=== PATIENT | female | born 1995 | race Caucasian/White ===

== ENCOUNTER 2017-04-02 11:50 | Observation (INO) | payer BC, OTHER ==
[2017-04-02 11:56] VITALS: BMI 25.5
--- NOTE | 2017-04-02 13:29 | PDOC ---
History of Present Illness - General History Source: Patient, Parent(s) Exam Limitations: No Limitations - History of Present Illness Initial Comments: 04/02/17 14:36 21F with pmh of migraine, idiopathic intracranial hypertension presents with 5-7 /10 migraines with aura for the past 7 days. Patient was seen Patient had a similar episode last month that lasted 9 days, treated by Neurologist Dr Douglas for the past 1.5yr since diagnosed with ICH. Spinal tap on 01/31/16 had then revealed opening pressure of 36 cm h2O. Patient was subsequently put on acetazolamide but stopped (recently) due to GI symptoms but resumed a few days ago. 04/02/17 14:47 04/02/17 14:54 <Jeffrey Avalos - Last Filed: 04/02/17 18:16> <Elmira Oliva - Last Filed: 04/02/17 18:29> - General Chief Complaint: Migraine Headache Stated Complaint: PCP SENT (MIGRAINES) Time Seen by Provider: 04/02/17 13:02 Past History - Past Medical History Other medical history: Pseudo Tumor Cerebri - Psycho/Social/Smoking Cessation Hx Suicidal Ideation: No Smoking History: Never smoked Information on smoking cessation initiated: No Hx Alcohol Use: No Drug/Substance Use Hx: Yes (occasional marijuana) Substance Use Type: None <Jeffrey Aavlos - Last Filed: 04/02/17 18:16> <Elmira Oliva - Last Filed: 04/02/17 18:29> - Past Medical History Allergies/Adverse Reactions: Allergies Allergy/AdvReac Type Severity Reaction Status Date / Time No Known Allergies Allergy Verified 04/02/17 11:56 Home Medications: Ambulatory Orders Aspirin/Acetaminophen/Caffeine [Excedrin Migraine Caplet] 1 each PO AM 04/02/17 Sumatriptan Succinate [Imitrex -] 50 mg PO DAILY 04/02/17 Neuro Specific PMHX - Complaint Specific PMHX Migraine: Yes (9-day episode 1 month ago) Other Neuro History: Concussion 1 year ago, <Jeffrey Avalos - Last Filed: 04/02/17 18:16> *Physical Exam - Vital Signs Last Vital Signs Temp Pulse Resp BP Pulse Ox 98.7 F 75 18 109/70 100 04/02/17 11:52 04/02/17 11:52 04/02/17 11:52 04/02/17 11:52 04/02/17 11:52 <Jeffrey Avalos - Last Filed: 04/02/17 18:16> - Vital Signs Last Vital Signs Temp Pulse Resp BP Pulse Ox 98.7 F 78 18 137/88 98 04/02/17 11:52 04/02/17 15:52 04/02/17 11:52 04/02/17 15:52 04/02/17 15:52 <Elmira Oliva - Last Filed: 04/02/17 18:29> Procedures - Lumbar Puncture Indication: Pseudotumor Cerebri, Headache Betadine Prep: Yes Position: Left lateral decubitus Site: L4-L51 Local Anesthesia: 2% Lidocaine w/ epi Volume(ml): 20 Lumbar Puncture Kit: Adult Opening Pressure(mmHg): [id number] Traumatic Tap: No Clear Fluid: Yes Complications: No Progress: 04/02/17 18:15 Successful tap sent to lab <Jeffrey Avalos - Last Filed: 04/02/17 18:16> ED Treatment Course - LABORATORY CBC & Chemistry Diagram: 04/02/17 14:16 04/02/17 14:16 <Jeffrey Avalos - Last Filed: 04/02/17 18:16> - LABORATORY CBC & Chemistry Diagram: 04/02/17 14:16 04/02/17 14:16 - ADDITIONAL ORDERS Additional order review: Laboratory Results 04/02/17 04/02/17 04/02/17 17:20 17:08 14:16 Sodium 141 Potassium 4.3 Chloride 107 Carbon Dioxide 25 Anion Gap 9 BUN 14 Creatinine 0.7 Creat Clearance w eGFR > 60 Random Glucose 76 Calcium 8.9 Total Bilirubin 0.2 AST 18 ALT 28 Alkaline Phosphatase 46 Total Protein 6.9 Albumin 3.6 Urine Color Urine Appearance Urine pH Ur Specific [place] Urine Protein Urine Glucose (UA) Urine Ketones Urine Blood Urine Nitrite Urine Bilirubin Urine Urobilinogen Ur Leukocyte Esterase Urine RBC Urine WBC Ur Epithelial Cells Urine HCG, Qual CSF Appearance Clear Clear CSF Color Colorless Colorless CSF WBC 0 0 CSF RBC 1 40 CSF Neutrophils Y Y CSF Glucose 63 CSF Total Protein 32 04/02/17 14:16 Sodium Potassium Chloride Carbon Dioxide Anion Gap BUN Creatinine Creat Clearance w eGFR Random Glucose Calcium Total Bilirubin AST ALT Alkaline Phosphatase Total Protein Albumin Urine Color Colorless Urine Appearance Clear Urine pH 7.0 Ur Specific [place] 1.015 Urine Protein Negative Urine Glucose (UA) Negative Urine Ketones Negative Urine Blood Negative Urine Nitrite Negative Urine Bilirubin Negative Urine Urobilinogen Negative Ur Leukocyte Esterase 1+ H Urine RBC 1 Urine WBC 2 Ur Epithelial Cells Rare Urine HCG, Qual Negative CSF Appearance CSF Color CSF WBC CSF RBC CSF Neutrophils CSF Glucose CSF Total Protein 04/02/17 14:16 RBC 4.39 MCV 91.0 MCHC 30.4 RDW 12.9 MPV 9.7 Neutrophils % 47.2 Lymphocytes % 43.2 H Monocytes % 7.9 Eosinophils % 1.2 Basophils % 0.5 - Medications Given in the ED: ED Medications Discontinued Medications Generic Name Dose Route Start Last Admin Trade Name Freq PRN Reason Stop Dose Admin Dihydroergotamine Mesylate 0.5 mg 04/02/17 14:50 04/02/17 15:37 D.H.E. 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 Send by Neurologist Dr Douglas for assessment in the ED. Head MRI this morning was normal. Migraines and intracranial hypertension on the differential. Upon recommendations of DR Douglas, ordered EKG, migranal IV. Patient consented to LP to check for opening pressure. Ativan iv given for procedure anxiety. PAtient to be admitted. LP Successful, nontraumatic with [id number] opening pressure. 20mL collected. 04/02/17 18:16 <Jeffrey Avalos - Last Filed: 04/02/17 18:16> *DC/Admit/Observation/Transfer - Discharge Dispostion Admit: Yes <Jeffrey Avalos - Last Filed: 04/02/17 18:16> - Discharge Dispostion Admit: Yes <Elmira Oliva - Last Filed: 04/02/17 18:29> Diagnosis at time of Disposition: Benign intracranial hypertension - Referrals Referrals: STAFF,NOT ON [Primary Care Provider] -
[2017-04-02] MEDS ORDERED: METOCLOPRAMIDE HCL INJECTION 10 MG/2 ML VIAL IVPB ONE (13:51)
[2017-04-02] MEDS ORDERED: METOCLOPRAMIDE HCL INJECTION 10 MG/2 ML VIAL ONE (13:57)
[2017-04-02 14:21] LABS: BASOPHIL 0.5 % (0-2.0); EOSINOPHIL 1.2 % (0-4.5); MCH 30.4 pg (25.7-33.7); MCHC 33.4 g/dl (32.0-36.0); MEAN PLT VOLUME 9.7 fl (7.5-11.1); NEUTROPHILS 47.2 % (42.8-82.8); PLATELET COUNT 220 K/MM3 (134-434); RDW 12.9 % (11.6-15.6); WHITE BLOOD COUNT 5.9 K/mm3 (4.0-10.0)
[2017-04-02 14:28] LABS: URINE APPEARANCE CLEAR; URINE BILIRUBIN NEGATIVE (NEGATIVE); URINE BLOOD NEGATIVE (NEGATIVE); URINE COLOR COLORLESS; URINE GLUCOSE (UA) NEGATIVE (NEGATIVE); URINE KETONE NEGATIVE (NEGATIVE); URINE NITRITE NEGATIVE (NEGATIVE); URINE PROTEIN NEGATIVE (NEGATIVE); URINE UROBILINOGEN NEGATIVE E.U./dl (0.2-1.0)
[2017-04-02] MEDS ORDERED: DIHYDROERGOTAMINE MESYLATE 1 MG/1 ML AMPULE IVPB ONE (14:50)
[2017-04-02 14:51] LABS: ALBUMIN 3.6 g/dl (3.4-5.0); ALK PHOS 46 U/L (45-117); ANION GAP 9 (8-16); BILIRUBIN,TOTAL 0.2 mg/dL (0.2-1.0); CALCIUM 8.9 mg/dL (8.5-10.1); CO2 25 mmol/L (21-32); CREATININE 0.7 mg/dL (0.55-1.02); GLUCOSE,RANDOM 76 mg/dL (74-106); SGOT/AST 18 U/L (15-37); SGPT/ALT 28 U/L (12-78); TOT PROT 6.9 g/dl (6.4-8.2)
[2017-04-02 15:00] LABS: URINE LEUK ESTERASE 1+ (NEGATIVE)
[2017-04-02] MEDS ORDERED: DIHYDROERGOTAMINE MESYLATE 1 MG/1 ML AMPULE IVPB SCH (15:00)
[2017-04-02] MEDS ORDERED: LORAZEPAM CARPU-JECT 2 MG/ML DISP.SYRIN IVPUSH ONE (15:06)
[2017-04-02 15:08] LABS: URINE RBC 1 /hpf (0-3); URINE WBC 2 /hpf (3-5)
[2017-04-02] MEDS ORDERED: LIDOCAINE HCL 1%, 10 MG/ML (50 mL VIAL) SQ ONE (15:19)
[2017-04-02] MEDS ORDERED: LIDOCAINE HCL/PF 1% SDV 5ML VIAL ONE (15:20)
--- NOTE | 2017-04-02 15:43 | EKG ---
Test Reason : Blood Pressure : / mmHG Vent. Rate : 075 BPM Atrial Rate : 075 BPM P-R Int : 168 ms QRS Dur : 082 ms QT Int : 390 ms P-R-T Axes : 072 069 047 degrees QTc Int : 435 ms NORMAL SINUS RHYTHM SEPTAL INFARCT , AGE UNDETERMINED ABNORMAL ECG NO PREVIOUS ECGS AVAILABLE Confirmed by DIOMEDES COUGHLIN MD ([id number]) on 04/02/2017 3:43:18 PM Referred By: Confirmed By:DIOMEDES COUGHLIN MD
[2017-04-02] MEDS ORDERED: LORAZEPAM CARPU-JECT 2 MG/ML DISP.SYRIN ONE (15:52)
[2017-04-02 17:52] LABS: GLUCOSE,CSF 63 mg/dL (50-80)
[2017-04-02 18:03] LABS: CSF COLOR COLORLESS
[2017-04-02 18:04] LABS: CSF APPEARANCE CLEAR; CSF RBC 40
[2017-04-02 18:06] LABS: CSF APPEARANCE CLEAR; CSF COLOR COLORLESS; CSF RBC 1
--- NOTE | 2017-04-02 18:21 | CON.NEURO ---
Consult - History of Present Illness Chief Complaint: OBANDO History of Present Illness: Pt known to me, 21F with pmh of migraine, idiopathic intracranial hypertension presents with progressive OBANDO x one month, intractable to migranal, steroids, nerve blocks, recent stopped diamox (seen by optho this week, stable pappiledema , developed GI side effects with diamox--trial off was initiated) Spinal tap on 01/31/16 had then revealed opening pressure of 36 cm h2O. seen office this week , MRI BRAIN no sinus thrombosis, LP in ER elevated OP 31. feels 60% better after LP; CSf NL - Alcohol/Substance Use Hx Alcohol Use: No - Smoking History Smoking history: Never smoked Home Medications - Allergies Allergies/Adverse Reactions: Allergies Allergy/AdvReac Type Severity Reaction Status Date / Time No Known Allergies Allergy Verified 04/02/17 11:56 - Home Medications Home Medications: Ambulatory Orders Aspirin/Acetaminophen/Caffeine [Excedrin Migraine Caplet] 1 each PO AM 04/02/17 Sumatriptan Succinate [Imitrex -] 50 mg PO DAILY 04/02/17 Physical Exam-Neuro Vital Signs: Vital Signs Temperature 98.7 F 04/02/17 11:52 Pulse Rate 78 04/02/17 15:52 Respiratory Rate 18 04/02/17 11:52 Blood Pressure 137/88 04/02/17 15:52 O2 Sat by Pulse Oximetry (%) 98 04/02/17 15:52 Constitutional: Yes: Well Nourished, No Distress Neck: Yes: Supple Labs: CBC, BMP 04/02/17 14:16 04/02/17 14:16 - Neuro Exam Level Of Consciousness: Yes: Alert, Oriented to Person (nonfocal, HX of pappiledema ) NIH Stroke Scale - Total Score NIH Stroke Scale Score: 0 Imaging - Results MRI: Report Reviewed, Image Reviewed Problem List - Problems (1) Pseudotumor Code(s): [id number] - (2) Migraine aura, persistent Code(s): G43.509 - PERST MIGRN AURA W/O CEREB INFRC, NOT NTRCT, W/O STAT MIGR Assessment/Plan , 21F with pmh of migraine, idiopathic intracranial hypertension presents with progressive OBANDO x one month, intractable to migranal, steroids, nerve blocks, recent stopped diamox (seen by optho this week, stable pappiledema, developed GI side effects with diamox--trial off was initiated) Spinal tap on 01/31/16 had then revealed opening pressure of 36 cm h2O. seen office this week, MRI BRAIN no sinus thrombosis, LP in ER elevated OP 31. feels 60% better after LP; 20cc was removed; CSf NL Pseudotumor exacerbation +/- migraines intractable; elevated OP cont DIAMOX 500BID DHE 0.5 IV TID, premedicate with REGLAN 10 will consider add on TOPAMAX as oupt weight loss etc please call any questions Dr Douglas [phone]
--- NOTE | 2017-04-02 19:38 | HP ---
CHIEF COMPLAINT: Headache, nausea PCP: HISTORY OF PRESENT ILLNESS: This is a 21 y/o female with a past medical history of Idiopathic Intracranial Hypertension, Migraines. Who presents to the emergency department with a migraine OBANDO with aura x 8 days. Patient reports having similar episode in February lasting 9 days. Patient reports having nausea, photophobia, and tinnitus. Patient reports being treated by Dr Douglas for ICH- Spinal tap on 01/31/16 had then revealed opening pressure of 36 cm h2O. MRI BRAIN no sinus thrombosis. Patient reports recently stopping Diamox secondary to GI upset. Patient reports being seen by her Neuro Nib Adjuster-stable Papilledema. Patient denies fever , chills, cough, dizziness, SOB, CP, AP, vomiting, constipation, dysuria. ER course was notable for: (1) LP- elevated OP 31, CSF NL (2) (3) Recent Travel: None PAST MEDICAL HISTORY: Idiopathic Intracranial Hypertension Migraines PAST SURGICAL HISTORY: None Social History: Smoking: Never Alcohol: None Drugs: None Lives with family, college graduate, currently not working Family History: Father: Migraines Mother: Migraines Brother: Migraines Aunt: Migraines Allergies No Known Allergies Allergy (Verified 04/02/17 11:56) HOME MEDICATIONS: Home Medications Medication Instructions Recorded Aspirin/Acetaminophen/Caffeine 1 each PO AM 04/02/17 [Excedrin Migraine Caplet] Sumatriptan Succinate [Imitrex -] 50 mg PO DAILY 04/02/17 REVIEW OF SYSTEMS CONSTITUTIONAL: Absent: fever, chills, diaphoresis, generalized weakness, malaise, loss of appetite, weight change HEENT: photophobia, tinnitus Absent: rhinorrhea, nasal congestion, throat pain, throat swelling, difficulty swallowing, mouth swelling, ear pain, eye pain, visual changes CARDIOVASCULAR: Absent: chest pain, syncope, palpitations, irregular heart rate, lightheadedness , peripheral edema RESPIRATORY: Absent: cough, shortness of breath, dyspnea with exertion, orthopnea, wheezing, stridor, hemoptysis GASTROINTESTINAL: nausea, diarrhea Absent: abdominal pain, abdominal distension, vomiting, constipation, melena, hematochezia GENITOURINARY: Absent: dysuria, frequency, urgency, hesitancy, hematuria, flank pain, genital pain MUSCULOSKELETAL: Absent: myalgia, arthralgia, joint swelling, back pain, neck pain SKIN: Absent: rash, itching, pallor HEMATOLOGIC/IMMUNOLOGIC: Absent: easy bleeding, easy bruising, lymphadenopathy, frequent infections ENDOCRINE: Absent: unexplained weight gain, unexplained weight loss, heat intolerance, cold intolerance NEUROLOGIC: headache Absent: focal weakness or paresthesias, dizziness, unsteady gait, seizure, mental status changes, bladder or bowel incontinence PSYCHIATRIC: Absent: anxiety, depression, suicidal or homicidal ideation, hallucinations. PHYSICAL EXAMINATION Vital Signs - 24 hr 04/02/17 04/02/17 11:52 15:52 Temperature 98.7 F Pulse Rate 75 Pulse Rate [ 78 Apical] Respiratory 18 Rate Blood Pressure 109/70 Blood Pressure 137/88 [Left Arm] O2 Sat by Pulse 100 98 Oximetry (%) GENERAL: Awake, alert, and fully oriented, in no acute distress. HEAD: Normal with no signs of trauma. EYES: Pupils equal, round and reactive to light, extraocular movements intact, sclera anicteric, conjunctiva clear. No lid lag. EARS, NOSE, THROAT: Ears normal, nares patent, oropharynx clear without exudates. Moist mucous membranes. NECK: Normal range of motion, supple without lymphadenopathy, JVD, or masses. LUNGS: Breath sounds equal, clear to auscultation bilaterally. No wheezes, and no crackles. No accessory muscle use. HEART: Regular rate and rhythm, normal S1 and S2 without murmur, rub or gallop. ABDOMEN: Soft, nontender, not distended, normoactive bowel sounds, no guarding, no rebound, no masses. No hepatomegaly or splenomegaly. MUSCULOSKELETAL: Normal range of motion at all joints. No bony deformities or tenderness. No CVA tenderness. UPPER EXTREMITIES: 2+ pulses, warm, well-perfused. No cyanosis. No clubbing. No peripheral edema. LOWER EXTREMITIES: 2+ pulses, warm, well-perfused. No calf tenderness. No peripheral edema. NEUROLOGICAL: Cranial nerves II-XII intact. Normal speech. Gait not observed. PSYCHIATRIC: Cooperative. Good eye contact. Appropriate mood and affect. SKIN: Warm, dry, normal turgor, no rashes or lesions noted, normal capillary refill. Laboratory Results - last 24 hr 04/02/17 04/02/17 04/02/17 14:16 14:16 14:16 WBC 5.9 RBC 4.39 Hgb 13.4 Hct 40.0 MCV 91.0 MCHC 30.4 RDW 12.9 Plt Count 220 MPV 9.7 Neutrophils % 47.2 Lymphocytes % 43.2 H Monocytes % 7.9 Eosinophils % 1.2 Basophils % 0.5 Sodium 141 Potassium 4.3 Chloride 107 Carbon Dioxide 25 Anion Gap 9 BUN 14 Creatinine 0.7 Creat Clearance w eGFR > 60 Random Glucose 76 Calcium 8.9 Total Bilirubin 0.2 AST 18 ALT 28 Alkaline Phosphatase 46 Total Protein 6.9 Albumin 3.6 Urine Color Colorless Urine Appearance Clear Urine pH 7.0 Ur Specific [place] 1.015 Urine Protein Negative Urine Glucose (UA) Negative Urine Ketones Negative Urine Blood Negative Urine Nitrite Negative Urine Bilirubin Negative Urine Urobilinogen Negative Ur Leukocyte Esterase 1+ H Urine RBC 1 Urine WBC 2 Ur Epithelial Cells Rare Urine HCG, Qual Negative CSF Appearance CSF Color CSF WBC CSF RBC CSF Neutrophils CSF Glucose CSF Total Protein 04/02/17 04/02/17 17:08 17:20 WBC RBC Hgb Hct MCV MCHC RDW Plt Count MPV Neutrophils % Lymphocytes % Monocytes % Eosinophils % Basophils % Sodium Potassium Chloride Carbon Dioxide Anion Gap BUN Creatinine Creat Clearance w eGFR Random Glucose Calcium Total Bilirubin AST ALT Alkaline Phosphatase Total Protein Albumin Urine Color Urine Appearance Urine pH Ur Specific [place] Urine Protein Urine Glucose (UA) Urine Ketones Urine Blood Urine Nitrite Urine Bilirubin Urine Urobilinogen Ur Leukocyte Esterase Urine RBC Urine WBC Ur Epithelial Cells Urine HCG, Qual CSF Appearance Clear Clear CSF Color Colorless Colorless CSF WBC 0 0 CSF RBC 40 1 CSF Neutrophils Y Y CSF Glucose 63 CSF Total Protein 32 ASSESSMENT/PLAN: This is a 21 y/o female with a PMHx of: Idiopathic Intracranial Hypertension, Migraines. Presents to the ED with a Migraine OBANDO with aura x 8 days. Placed in Observation for evaluation of their emergent condition. Plan: 1. Neuro: Idiopathic Intracranial Hypertension - Likely secondary to increased ICP - LP performed in ED with OP 31- patient reports OBANDO is decreasing - Neuro is following - Will continue Diamox BID - Reglan and DHE continued by Dr. Douglas - IVF - Neuro checks - Monitor vitals - Repeat CBC, BMP in am 2. Migraine Headache - Acute - Continue Reglan, DHE, Diamox - Neuro following - Monitor vitals 3. Nausea - Likely secondary to Migraine OBANDO - Continue Reglan 4. FEN - NS@75ml/hr - Replete lytes prn - Low Na Diet 5. DVT Prophylaxis - OOB - SCDs Code Status: Full Code Problem List - Problem (1) Migraine aura, persistent Code(s): G43.509 - PERST MIGRN AURA W/O CEREB INFRC, NOT NTRCT, W/O STAT MIGR (2) Pseudotumor Code(s): TLB1872 - (3) Nausea Code(s): R11.0 - NAUSEA (4) DVT prophylaxis Code(s): LEC1696 - Visit type - Emergency Visit Emergency Visit: Yes ED Registration Date: 04/02/17 Care time: The patient presented to the Emergency Department on the above date and was hospitalized for further evaluation of their emergent condition. - New Patient This patient is new to me today: Yes Date on this admission: 04/02/17 - Critical Care Critical Care patient: No
[2017-04-02] MEDS ORDERED: FLUTICASONE PROP 0.05% 16 GM NASAL SPRAY NS PRN (20:46)
[2017-04-02] MEDS ORDERED: PT OWN MED DRAWER 7, Y5N ONE ×2 (22:10→22:54)
[2017-04-02] MEDS ORDERED: SODIUM CHLORIDE 1,000 ML IV SCH (22:15)
[2017-04-02] MEDS: acetaZOLAMIDE 250 MG TABLET PO SCH (22:41)
[2017-04-03] MEDS ORDERED: PT OWN MED DRAWER 7, Y5N ONE ×2 (01:06→09:57)
[2017-04-03] MEDS: METOCLOPRAMIDE HCL INJECTION 10 MG/2 ML VIAL IVPB SCH ×2 (01:17→10:02)
[2017-04-03] MEDS: DIHYDROERGOTAMINE MESYLATE 1 MG/1 ML AMPULE IVPB SCH ×2 (01:56→10:49)
[2017-04-03 08:09] LABS: ANION GAP 8 (8-16); CALCIUM 8.7 mg/dL (8.5-10.1); CO2 21 mmol/L (21-32); CREATININE 0.7 mg/dL (0.55-1.02); GLUCOSE,RANDOM 85 mg/dL (74-106)
[2017-04-03 09:31] LABS: BASOPHIL 0.6 % (0-2.0); EOSINOPHIL 1.2 % (0-4.5); MCH 30.5 pg (25.7-33.7); MCHC 33.4 g/dl (32.0-36.0); MEAN CELL VOLUME 91.4 fl (80-96); NEUTROPHILS 50.2 % (42.8-82.8); PLATELET COUNT 206 K/MM3 (134-434)
[2017-04-03] MEDS ORDERED: ESCITALOPRAM OXALATE 10 MG TABLET (FP) PO SCH (10:00)
[2017-04-03] MEDS ORDERED: LORATADINE 10 MG TABLET PO SCH (10:00)
[2017-04-03] MEDS: acetaZOLAMIDE 250 MG TABLET PO SCH (10:01)
[2017-04-03] MEDS ORDERED: KETOROLAC TROMETHAMINE 60 MG/2 ML VIAL IM ONE (14:00)
--- NOTE | 2017-04-03 15:15 | DS ---
Physical Exam: SUBJECTIVE: Patient seen and examined at bedside. Headache is 4/10. Very much wants to go home. OBJECTIVE: Vital Signs Period Temp Pulse Resp BP Sys/Renee Pulse Ox Last 24 Hr 97.4 F-98.7 F 66-79 18-20 109-140/49-61 99-99 PHYSICAL EXAM GENERAL: The patient is awake, alert, and fully oriented, in no acute distress. HEAD: Normal with no signs of trauma. EYES: PERRL, extraocular movements intact, sclera anicteric, conjunctiva clear. ENT: Ears normal, nares patent, oropharynx clear without exudates, moist mucous membranes. NECK: Trachea midline, full range of motion, supple. LUNGS: Breath sounds equal, clear to auscultation bilaterally, no wheezes, no crackles, no accessory muscle use. HEART: Regular rate and rhythm, S1, S2 without murmur, rub or gallop. ABDOMEN: Soft, nontender, nondistended, normoactive bowel sounds, no guarding, no rebound, no hepatosplenomegaly, no masses. EXTREMITIES: 2+ pulses, warm, well-perfused, no edema. NEUROLOGICAL: Cranial nerves II through XII grossly intact. Normal speech, gait not observed. Laboratory Results - last 24 hr 04/03/17 04/03/17 06:30 06:30 WBC 6.0 RBC 4.67 Hgb 14.2 Hct 42.7 MCV 91.4 MCH 30.5 MCHC 33.4 RDW 13.0 Plt Count 206 MPV 10.0 Neutrophils % 50.2 Lymphocytes % 41.5 H Monocytes % 6.5 Eosinophils % 1.2 Basophils % 0.6 Sodium 140 Potassium 4.0 Chloride 111 H Carbon Dioxide 21 Anion Gap 8 BUN 9 D Creatinine 0.7 Random Glucose 85 Calcium 8.7 HOSPITAL COURSE: Date of Admission:04/02/17 Date of Discharge: 04/03/17 Pre hospital course 21 year-old female with a PMH of idiopathic intracranial hypertension and migraine with aura. She presented to the ED with one month of refractory migraine, managed by Dr. Douglas as her primary neurologist. The headache was intractable to steroids and nerve blocks. She had been started on a trial of diamox but recently stopped taking it due to GI upset and diarrhea. An MRI done as an outpatient earlier this week showed no sinus thrombosis. Emergency department course An LP was done, opening pressure [id number] (in January 2016 LP opening pressure [id number]). CSF normal. Patient reported some relief of headache after LP. Subsequent hospital course by problem list Exacerbation of intracranial hypertension Migraine with aura --restarted diamox 500mg BID --treated with DHE IV 0.5mg TID with premedication with Reglan --IV fluids --continued Lexapro --Toradol IM 60mg x 1 --seen and evaluated by Dr. Barraza; OK to discharge: continue diamox; Toradol injectable PRN; amitriptyline qhs Minutes to complete discharge: 35 Discharge Summary Reason For Visit: BENIGN INTERCRANIAL HYPERTENSION Current Active Problems DVT prophylaxis (Acute) Migraine aura, persistent (Acute) Nausea (Acute) Pseudotumor (Acute) Condition: Improved - Instructions Diet, Activity, Other Instructions: Six prescriptions have been sent to your [facility] pharmacy on [facility]. 1. Toradol injectable; the dose you were given in the hospital was 60mg IM. You should check with Dr. Douglas as to the dose he recommends for home use; 2. Syringes 3. 1/2" needles 4. Alcohol preps 5. Gauze pads 6. Amitriptyline 10mg PO to be taken at bedtime Please return to the emergency department for any new or worsening symptoms. Referrals: Ham Douglas DO [Staff Physician] - Disposition: HOME - Home Medications Comprehensive Discharge Medication List: Ambulatory Orders Aspirin/Acetaminophen/Caffeine [Excedrin Migraine Caplet] 1 each PO AM 04/02/17 Escitalopram Oxalate [Lexapro -] 10 mg PO DAILY 04/02/17 Sumatriptan Succinate [Imitrex -] 50 mg PO DAILY 04/02/17 Acetazolamide [Diamox -] 500 mg PO BID tablet 04/03/17 Alcohol Antiseptic Pads [Caretouch Alcohol Prep Pad] 1 each TP ASDIR #1 box 05/13 Amitriptyline HCl [Elavil -] 10 mg PO HS #30 tablet 04/03/17 Gauze Bandage [Gauze Pads] 1 each TP ASDIR #1 box 04/03/17 Ketorolac Injection [Toradol] 60 mg IM ASDIR #1 vial 04/03/17 [place], Safety [Easy Touch Fliplock Needle] 1 each ASDIR #30 dis.needle 05/13 Syringe, Disposable, 3 ml [Easy Touch Luer Lock Syringe] 1 each ASDIR #30 disp.syrin 04/03/17 This patient is new to me today: Yes Date on this admission: 04/03/17 Emergency Visit: Yes ED Registration Date: 04/02/17 Care time: The patient presented to the Emergency Department on the above date and was hospitalized for further evaluation of their emergent condition. Critical Care patient: No - Discharge Referral Referred to [facility] No
[2017-04-03 15:25] VITALS: BP 124/72; PULSE 62; TEMP 98.3
--- NOTE | 2017-04-03 17:09 | CON.NEURO ---
Consult Consult Specialty:: Neurology Referred by:: wander Reason for Consultation:: headache - History of Present Illness Chief Complaint: headache History of Present Illness: history of migraine and pseudotumor cerebrii. Had been on diamox 500 bid and with good headache control. On diamaox had diarrhea and reportedly because disc looked good and diarrhea was bothering her her Optho suggested dc diamox. she then developed daily headaches. Admitted because of this and op of 32. Today headache much better after lp and back on diamox. 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, pseudotumor cerebrii) ...LMP: 03/14/17 ...: No - Alcohol/Substance Use Hx Alcohol Use: No - Smoking History Smoking history: Never smoked Home Medications - Allergies Allergies/Adverse Reactions: Allergies Allergy/AdvReac Type Severity Reaction Status Date / Time Milk Containing Products Allergy Intermediate Verified 04/03/17 03:46 milk containing products Allergy Intermediate Uncoded 04/03/17 03:46 - Home Medications Home Medications: Ambulatory Orders Aspirin/Acetaminophen/Caffeine [Excedrin Migraine Caplet] 1 each PO AM 04/02/17 Escitalopram Oxalate [Lexapro -] 10 mg PO DAILY 04/02/17 Sumatriptan Succinate [Imitrex -] 50 mg PO DAILY 04/02/17 Acetazolamide [Diamox -] 500 mg PO BID tablet 04/03/17 Alcohol Antiseptic Pads [Caretouch Alcohol Prep Pad] 1 each TP ASDIR #1 box 05/13 Amitriptyline HCl [Elavil -] 10 mg PO HS #30 tablet 04/03/17 Gauze Bandage [Gauze Pads] 1 each TP ASDIR #1 box 04/03/17 Ketorolac Injection [Toradol] 60 mg IM ASDIR #1 vial 04/03/17 [place], Safety [Easy Touch Fliplock Needle] 1 each ASDIR #30 dis.needle 05/13 Syringe, Disposable, 3 ml [Easy Touch Luer Lock Syringe] 1 each ASDIR #30 disp.syrin 04/03/17 Physical Exam-Neuro Vital Signs: Vital Signs Temperature 98.3 F 04/03/17 15:21 Pulse Rate 62 04/03/17 15:21 Respiratory Rate 20 04/03/17 15:21 Blood Pressure 124/72 04/03/17 15:21 O2 Sat by Pulse Oximetry (%) 99 04/03/17 12:00 Labs: CBC, BMP 04/03/17 06:30 04/03/17 06:30 - Neuro Exam Cranial Nerves II-XII Intact: Yes DTR's: 2+ Left Bicep, 2+ Right Bicep, 2+ Left Tricep, 2+ Right Tricep, 2+ Left Brachioradialis, 2+ Right Brachioradialis, 2+ Left Achilles, 2+ Right Achilles Babinski: Absent Response to light touch: Normal Motor Strength: 5/5: Left Arm, Right Arm, Left Leg, Right Leg Gait: Normal NIH Stroke Scale - Total Score NIH Stroke Scale Score: 0 Assessment/Plan pseudotumor cerebrii and migraine. Can now give Ketorolac 60 mg once and dc. Amitriptyline 10 mg qhs. Diamox 500 bid. F/U with brandy. Torradol as outpatient as needed.
== END 2017-04-03 16:49 | disposition home or self-care (01) ==
LOC: JER 11:50 → JERBED 18:32 → J5S 20:11
PROVIDERS: ADMIT Internal Medicine; ATTEND Nurse Practitioner Acute Care
PROC: 3E033GC Introduction of Other Therapeutic Substance into Peripheral Vein, Percutaneous Approach (ICD-10-PCS; principal; 2017-04-02)
PROC: 3E0233Z Introduction of Anti-inflammatory into Muscle, Percutaneous Approach (ICD-10-PCS; 2017-04-02)
PROC: 3E013GC Introduction of Other Therapeutic Substance into Subcutaneous Tissue, Percutaneous Approach (ICD-10-PCS; 2017-04-02)
PROC: 3E0337Z Introduction of Electrolytic and Water Balance Substance into Peripheral Vein, Percutaneous Approach (ICD-10-PCS; 2017-04-02)
DX: G93.2 Benign intracranial hypertension (principal); G43.509 Persistent migraine aura without cerebral infarction, not intractable, without status migrainosus; R11.0 Nausea; Z79.82 Long term (current) use of aspirin
CPT/HCPCS: 36415; 80048; 80053; 81003; 81015; 82945; 84157; 84703; 85025; 86617; 87070; 87205; 87476; 89050; 93005; 93010; 99285-25; G0378